=== PATIENT | male | born 1985 | race Hispanic/Latino ===

== ENCOUNTER 2022-12-12 15:18 | Emergency (ER) | payer SELFPAY ==
[~2022-12-12] VITALS: Ht 167.6 cm; Wt 99.8 kg
[2022-12-12 15:59] VITALS: O2SAT 99
[2022-12-12] MEDS ORDERED: KETOROLAC TROMETHAMINE 60 MG/2 ML VIAL IM ONE (16:15)
[2022-12-12] MEDS ORDERED: HYDROCODONE/APAP 10MG-325MG TAB PO ONE (16:15)
== END 2022-12-12 16:18 | disposition home or self-care (01) ==
LOC: ER 15:23
DX: M25.552 Pain in left hip (principal)
CPT/HCPCS: 99282; J1885